=== PATIENT | male | born 1950 | race Caucasian/White ===

== ENCOUNTER 2016-10-10 15:50 | Emergency (ER) | payer OTHER, MEDICARE ==
[~2016-10-10] VITALS: Ht 182.9 cm; Wt 111.5 kg
[~2016-10-10 15:50] MED LIST: ADVI200T PO; ALBU17I INH; ATOR20TA PO; DUONI INH; FURO1TAB93 PO; GLUCTAB PO; LEVA750T PO; NEBUKIT XX; NEBUKIT4; PRED10 PO; SPIRCAP INH; ST J81CH PO; SYMB160A INH; Z.0.OXYGENDME NC
[2016-10-10 15:57] VITALS: BP 115/64; PULSE 62; RESP 16; TEMP 98.3; O2SAT 92
--- NOTE | 2016-10-10 16:27 | PD ---
HPI Chief Complaint: Fall Time Seen by Provider: 16:16 Travel History International Travel<30 days: No Contact w/Intl Traveler<30days: No Traveled to known affect area: No History of Present Illness HPI This 66-year-old male had a fall at home. He tripped on a pole and fell forward hitting his face on the wall and bending backwards. He is having pain in the left posterior ribs since the fall. Pain is aggravated by deep breathing. He has a history of COPD. He is on Eliquis. 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 He did not have a loss of consciousness. PFSH Past Medical History Hx Anticoagulant Therapy: Yes Arthritis: No Asthma: Yes Anxiety: Yes Depression: No Heart Rhythm Problems: No Cancer: No Cardiac Catheterization: Yes Cardiovascular Problems: Yes High Cholesterol: No Chemotherapy: No Chest Pain: No Congestive Heart Failure: No COPD: Yes Cerebrovascular Accident: No Diabetes: Yes Diminished Hearing: No GERD: No Hiatal Hernia: No Hypertension: Yes Kidney Stones: No Respiratory: Yes Migraines: No Radiation Therapy: No Seizures: No Sickle Cell Disease: No Sleep Apnea: Yes (CPAP AT NIGHT) Ulcer: No PNEUMOCCOCAL Vaccine (Year): 2008 Past Surgical History Abdominal Surgery: Yes (INGUINAL HERNIA REPAIR) AICD: No Arteriovenous Shunt: No Cardiac Surgery: No Ear Surgery: No Endocrine Surgery: No Eye Surgery: No Genitourinary Surgery: No Gynecologic Surgery: No Insulin Pump: No Joint Replacement: No Neurologic Surgery: Yes (back surgery) Oral Surgery: No Pacemaker: No Thoracic Surgery: No Tonsillectomy: Yes Other Surgery: Yes Social History Alcohol Use: Yes (OCCASIONAL) Tobacco Use: No (quit 6yrs ago) Substance Use: No Allergies-Medications (Allergen,Severity, Reaction): Coded Allergies: Penicillin (Verified Allergy, Intermediate, 10/10/16) Reported Meds & Prescriptions Reported Meds & Active Scripts Active Reported Spiriva Handihaler (Tiotropium Inh) 18 Mcg Cap 18 Mcg INH DAILY 1 capsule = 18 mcg Symbicort Inh (Budesonide/Formoterol Fumarate) 160-4.5 Mcg/Act Aero 2 Puff INH Q12HR Viagra (Sildenafil Citrate) 100 Mg Tab 100 Mg PO DAILY PRN Eliquis (Apixaban) 5 Mg Tab 5 Mg PO BID Metoprolol Succinate ER 24 HR (Metoprolol Succinate) 50 Mg Tab 0.5 Tab PO DAILY Lipitor (Atorvastatin Calcium) 80 Mg Tab 80 Mg PO HS Lasix (Furosemide) 80 Mg Tab 80 Mg PO DAILY Potassium Chloride ER (Potassium Chloride) 20 Meq Tab 20 Meq PO DAILY Review of Systems General / Constitutional: No: Fever, Chills Eyes: No: Diploplia, Blurred Vision HENT: No: Headaches Cardiovascular: No: Chest Pain or Discomfort, Palpitations Respiratory: Positive: Shortness of Breath, Pleuritic Pain, No: Cough Gastrointestinal: No: Vomiting, Diarrhea Genitourinary: No: Urgency, Frequency Musculoskeletal: No: Myalgias, Arthralgias Physical Exam Narrative GENERAL: Well-developed male SKIN: Focused skin assessment warm/dry. HEAD: Atraumatic. Normocephalic. EYES: Pupils equal and round. No scleral icterus. No injection or drainage. There is a small bruise on the left cheek. Extraocular movements are full. There is no bony crepitus ENT: No nasal bleeding or discharge. Mucous membranes pink and moist. NECK: Trachea midline. No JVD. CARDIOVASCULAR: Regular rate and rhythm. No murmur appreciated. RESPIRATORY: No accessory muscle use. Clear to auscultation. Breath sounds equal bilaterally. There is tenderness palpated to palpation of the left mid ribs posteriorly. GASTROINTESTINAL: Abdomen soft, non-tender, nondistended. Hepatic and splenic margins not palpable. MUSCULOSKELETAL: No obvious deformities. No clubbing. No cyanosis. No edema. There is no midline tenderness of the back NEUROLOGICAL: Awake and alert. No obvious cranial nerve deficits. Motor grossly within normal limits. Normal speech. PSYCHIATRIC: Appropriate mood and affect; insight and judgment normal. Data Data Last Documented VS Vital Signs Date Time Temp Pulse Resp B/P Pulse Ox O2 Delivery O2 Flow Rate FiO2 10/10/16 16:32 Room Air 10/10/16 15:57 98.3 62 16 115/64 92 Orders Oxycodone-Acetamin 5-325 Mg (Percocet (10/10/16 16:30) Ribs, Uni (W/Exp Cxr-Min 3vw) (10/10/16 16:23) [facility] Medical Decision Making Medical Screen Exam Complete: Yes Emergency Medical Condition: Yes Medical Record Reviewed: Yes Differential Diagnosis Differential includes rib fracture, contusion, pneumothorax Narrative Course X-ray shows the lungs to be well expanded. Definite rib fractures not seen though certainly he could have an occult fracture. He does appear quite uncomfortable with pain. He has been prescribed Percocet with some improvement. He'll be released with prescription for Percocet Diagnosis Primary Impression: Chest wall contusion Qualified Code: S20.212A - Chest wall contusion, left, initial encounter Scripts Oxycodone-Acetaminophen (Percocet)5-325 mg Tab1-2 Tab PO Q4H PRN (PAIN) #30 TAB Ref 0 Prov:Ike Parrish MD 10/10/16 Disposition: DISCHARGE HOME Condition: Stable Ike Parrish MD October 10, 2016 16:27
[2016-10-10] MEDS ORDERED: oxyCODONE/ACETAMINOPHEN 5 MG/325 MG TAB PO ONE (16:30)
[2016-10-10] MEDS ORDERED: LIPI80TA PO (16:43)
[2016-10-10] MEDS ORDERED: POTA-163 PO (16:43)
[2016-10-10] MEDS ORDERED: VIAG100T PO (16:43)
[2016-10-10] MEDS ORDERED: FURO1TAB61 PO (16:43)
[2016-10-10] MEDS ORDERED: SYMB160A INH (16:43)
[2016-10-10] MEDS ORDERED: METO50TA11 PO (16:43)
[2016-10-10] MEDS ORDERED: SPIRCAP INH (16:43)
[2016-10-10] MEDS ORDERED: APIX5TAB PO (16:43)
--- NOTE | 2016-10-10 16:54 | RADHPO ---
EXAM DATE/TIME: 10/10/2016 16:32 [facility] COMPARISON: CHEST SINGLE AP, May 29, 2015, 6:12. CHEST SINGLE AP, July 04, 2015, 16:32. CT PULMONARY AN GIOGRAM, July 04, 2015, 23:37. CHEST SINGLE AP, August 11, 2015, 7:03. INDICATIONS : Left posterior, superior rib pain post fall. MEDICAL HISTORY : Chronic obstructive pulmonary disease. Cardiovascular disease. CPAP. Asthma. Dyspnea. Anxiety. I nguinal hernia, Sleep apnea SURGICAL HISTORY : CABG. Tonsillectomy. Inguinal hernia repair. Back surgery ENCOUNTER: Initial ACUITY: 1 day PAIN SCORE: 9/10 LOCATION: Left posterior ribs FINDINGS: There is mild atelectasis or scarring in the lung bases. There is no evidence of hemothorax or pneumo thorax. Cardiac contour is stable with prominence of the central pulmonary vasculature again noted. N o definite displaced rib fracture is appreciated. Sternotomy wires are noted. CONCLUSION: Mild basilar scarring or atelectasis. Ben Grossman MD on October 10, 2016 at 16:50 Board Certified Radiologist. This report was verified electronically.
[2016-10-10] MEDS ORDERED: PERC5TAB12 PO (17:09)
== END 2016-10-10 17:19 | disposition home or self-care (01) ==
LOC: PHED 15:50
DX: S20.212A Contusion of left front wall of thorax, initial encounter (principal); S09.93XA Unspecified injury of face, initial encounter; J44.9 Chronic obstructive pulmonary disease, unspecified; J45.909 Unspecified asthma, uncomplicated; E11.9 Type 2 diabetes mellitus without complications; I10 Essential (primary) hypertension; G47.30 Sleep apnea, unspecified; Z79.01 Long term (current) use of anticoagulants; Z87.891 Personal history of nicotine dependence; W01.0XXA Fall on same level from slipping, tripping and stumbling without subsequent striking against object, initial encounter; Y93.9 Activity, unspecified; Y92.009 Unspecified place in unspecified non-institutional (private) residence as the place of occurrence of the external cause; Y99.8 Other external cause status
CPT/HCPCS: 71101; 99283

== ENCOUNTER 2017-11-23 20:52 | Emergency (ER) | payer OTHER, MEDICARE ==
[~2017-11-23] VITALS: Ht 182.9 cm; Wt 117.7 kg
[~2017-11-23 20:52] MED LIST changes: -ADVI200T PO; -ALBU17I INH; +APIX5TAB PO; -ATOR20TA PO; -DUONI INH; +FURO1TAB61 PO; -FURO1TAB93 PO; -GLUCTAB PO; -LEVA750T PO; +LIPI80TA PO; +METO1TAB9 PO; -NEBUKIT XX; -NEBUKIT4; +PERC5TAB12 PO; +POTA-163 PO; -PRED10 PO; -ST J81CH PO; +VIAG100T PO; -Z.0.OXYGENDME NC
[2017-11-23 21:21] VITALS: BP 142/69; PULSE 64; RESP 18; TEMP 98.2; O2SAT 95
[2017-11-23] MEDS ORDERED: LIDOCAINE HCL 1% PF 30 ML VIAL INFIL ONE (21:45)
--- NOTE | 2017-11-23 21:45 | PD ---
HPI Chief Complaint: Laceration/Skin Injury Time Seen by Provider: 21:38 Travel History International Travel<30 days: No Contact w/Intl Traveler<30days: No Traveled to known affect area: No History of Present Illness HPI 67-year-old male presents to the emergency department by private transportation for evaluation of multiple laceration sustained to the left index finger and right forearm from the propeller of a remote control airplane that he was working on just prior to arrival to the emergency department. Patient states tetanus immunization was boosted within the past 2-3 years and currently less than 5 years ago. Patient is right-handed. Patient states majority of the injury was to the left index finger dorsal aspect. Patient states he has no limitation on extension and flexion of the digit but does have some discomfort due to multiple superficial and less superficial lacerations. Patient does not notice any bony deformity. No report of loss of sensation. Patient does take Eliquis due to history of venous thrombus. Patient was working on his airplane in his kitchen. PFSH Past Medical History Narrative Medical COPD CAD CABG diabetes dyslipidemia hypertension sleep apnea with CPAP back surgery tonsillectomy cardiac ablation; occasional alcohol use; nursing notes reviewed Hx Anticoagulant Therapy: Yes Arthritis: No Asthma: Yes Anxiety: Yes Depression: No Heart Rhythm Problems: Yes Cancer: No Cardiac Catheterization: Yes Cardiovascular Problems: Yes (Open heart surgery) High Cholesterol: Yes Chemotherapy: No Chest Pain: No Congestive Heart Failure: No COPD: Yes Cerebrovascular Accident: No Coronary Artery Disease: Yes Diabetes: Yes Diminished Hearing: No GERD: No Hiatal Hernia: No Hypertension: Yes Kidney Stones: No Respiratory: Yes (COPD) Migraines: No Radiation Therapy: No Seizures: No Sickle Cell Disease: No Sleep Apnea: Yes (CPAP AT NIGHT) Ulcer: No PNEUMOCCOCAL Vaccine (Year): 2008 Past Surgical History Abdominal Surgery: Yes (INGUINAL HERNIA REPAIR) AICD: No Arteriovenous Shunt: No Cardiac Surgery: Yes (OPEN HEART, ABLASION) Ear Surgery: No Endocrine Surgery: No Eye Surgery: No Genitourinary Surgery: No Gynecologic Surgery: No Insulin Pump: No Joint Replacement: No Neurologic Surgery: Yes (back surgery) Oral Surgery: No Pacemaker: No Thoracic Surgery: No Tonsillectomy: Yes Other Surgery: Yes Social History Alcohol Use: Yes (OCCASIONAL) Tobacco Use: No (quit 6yrs ago) Substance Use: No Allergies-Medications (Allergen,Severity, Reaction): Coded Allergies: penicillin G (Verified Allergy, Intermediate, 11/23/17) Reported Meds & Prescriptions Reported Meds & Active Scripts Active Reported Symbicort Inh (Budesonide/Formoterol Fumarate) 160-4.5 Mcg/Act Aero 2 Puff INH Q12HR Eliquis (Apixaban) 5 Mg Tab 5 Mg PO BID Metoprolol Succinate ER 24 HR (Metoprolol Succinate) 50 Mg Tab 0.5 Tab PO DAILY Lasix (Furosemide) 80 Mg Tab 80 Mg PO DAILY Potassium Chloride ER (Potassium Chloride) 20 Meq Tab 20 Meq PO DAILY Review of Systems Except as stated in HPI: all other systems reviewed are Neg Physical Exam Narrative GENERAL: Well-developed well-nourished male no acute distress no respiratory distress SKIN: Warm and dry. MUSCULOSKELETAL: No cyanosis, or edema. Attention left hand dorsal aspect of left index finger 10 1 cm superficial lacerations that have bleeding controlled and do not interfere with digit extension or flexion at the second MCP or the PIP or DIP digit is otherwise neurovascular tendon intact without deformity capillary refill is brisk and less than 2 seconds; attention right forearm volar aspect 4 cm superficial linear contusion laceration bleeding controlled. Data Data Last Documented VS Vital Signs Date Time Temp Pulse Resp B/P (MAP) Pulse Ox O2 Delivery O2 Flow Rate FiO2 11/23/17 21:21 98.2 64 18 142/69 (93) 95 Orders Orders Lidocaine Pf 1% Inj (Xylocaine-Mpf 1% In (11/23/17 21:45) Wound Care (11/23/17 21:38) Ed Discharge Order (11/23/17 22:20) Erythromycin Ees (Ees) (11/23/17 22:30) Wound Care (11/23/17 22:23) MDM Medical Decision Making Medical Screen Exam Complete: Yes Emergency Medical Condition: Yes Medical Record Reviewed: Yes Differential Diagnosis Laceration, neurovascular tendon injury, fracture Narrative Course Patient with multiple superficial lacerations to the dorsal aspect of the left index finger sparing the second MCP PIP and DIP with bleeding controlled soaking with dilute Betadine and irrigation with IrriMax performed and wound closure completed with 5-0 nylon; patient tolerated well. Steri-Strips are applied to superficial 4 cm contusion laceration to the volar aspect of the right forearm. Patient tolerated well patient given first dose of oral antibiotic in the emergency department. Patient encouraged to have wound check at 2 days and suture removal at 7-10 days. Procedures Procedure Narrative LACERATION LOCATION: Left index finger LENGTH: Multiple 1 cm and 2 cm linear lacerations dorsum left index finger NUMBER OF STITCHES/SOPHIE: 7 REPAIR: The area of the laceration was prepped with Betadine and sterilely draped. The laceration was infiltrated with 1% lidocaine plain digital block. The wound was copiously irrigated and explored without evidence of foreign body , tendon injury or neurovascular injury. The wound was closed using 5-0 nylon. This was a single layer repair. A sterile dressing was applied. The patient was advised to keep the dressing clean and dry. Patient tolerated the procedure well. Diagnosis Primary Impression: Multiple lacerations Additional Impression: Laceration of multiple sites of hand and fingers Qualified Codes: S61.412A - Laceration without foreign body of left hand, initial encounter; S61.219A - Laceration without foreign body of unspecified finger without damage to nail, initial encounter Referrals: Primary Care Physician 2 days Patient Instructions: General Instructions Additional Instructions: Follow wound care instructions Wound check at 2 days and suture removal in 7-10 days Keep site clean and dry Follow-up with primary care provider Return to the emergency department as needed for wound check suture removal or any concerns May take acetaminophen/Tylenol as needed for minor pain or for fever 100.4F or greater Complete course of antibiotic as prescribed Continue current medications as chronically prescribed Med/Other Pt SpecificInfo: Prescription(s) given Scripts Erythromycin Ethylsuccinate (Erythromycin Ethylsuccinate) 400 Mg Tab 400 MG PO Q12H for Infection for 5 Days, #10 TAB 0 Refills Prov: Dea Briceño MD 11/23/17 Disposition: DISCHARGE HOME Condition: Stable Dea Briceño MD Nov 23, 2017 21:45
[2017-11-23] MEDS ORDERED: ERYT400T4 PO (22:30)
[2017-11-23] MEDS ORDERED: ERYTHROMYCIN ETHYLSUCCINATE 400 MG TAB PO ONE (22:30)
[2017-11-23] MEDS ORDERED: ERYTHROMYCIN EC 250 MG TABEC PO ONE (23:00)
== END 2017-11-23 23:07 | disposition home or self-care (01) ==
LOC: PHEFT 20:52
DX: S61.211A Laceration without foreign body of left index finger without damage to nail, initial encounter (principal); S51.811A Laceration without foreign body of right forearm, initial encounter; S61.412A Laceration without foreign body of left hand, initial encounter; J44.9 Chronic obstructive pulmonary disease, unspecified; I10 Essential (primary) hypertension; E11.69 Type 2 diabetes mellitus with other specified complication; W26.8XXA Contact with other sharp object(s), not elsewhere classified, initial encounter; Y93.89 Activity, other specified; Z88.0 Allergy status to penicillin
CPT/HCPCS: 12002